=== PATIENT | male | born 1960 | race Caucasian/White ===

== ENCOUNTER → 2020-02-29 17:41 | Outpatient (CLI) | payer OTHER, SELFPAY ==
[2020-01-09 13:49] VITALS: BMI 33.4
== END ==
PROVIDERS: PCP Family Medicine; Referring Provider Physician Assistant Surgical; Visit Provider Physician Assistant Surgical
DX: U07.1 COVID-19 (principal)
CPT/HCPCS: 87635; C9803; U0003

== ENCOUNTER 2020-08-20 12:18 | Outpatient (RCR) | payer BC, SELFPAY ==
[2020-04-23 16:00] VITALS: BMI 34.2
== END 2020-09-24 23:59 ==
LOC: IMMUN 12:18
PROVIDERS: PCP Family Medicine; Referring Provider Family Medicine; Visit Provider Family Medicine
DX: Z23 Encounter for immunization (principal)
CPT/HCPCS: 0001A; 91300